=== PATIENT | female | born 1950 | race Caucasian/White ===

== ENCOUNTER 2019-04-23 15:52 | Emergency (ER) | payer OTHER ==
[~2019-04-23] VITALS: Ht 167.6 cm; Wt 103.4 kg
[2019-04-23] MEDS ORDERED: GLUCOTROL5 MG PO (16:11)
[2019-04-23] MEDS ORDERED: TRULICITY0.75 MG/0. SUBQ (16:12)
[2019-04-23] MEDS ORDERED: CALCIUM 500 +1 EAC5 PO (16:12)
[2019-04-23] MEDS ORDERED: VITAMIN D5000 UNIT PO (16:12)
[2019-04-23] MEDS ORDERED: FISH OIL 1,001000 M2 PO (16:12)
[2019-04-23] MEDS ORDERED: COZAAR 25 MG TA25 M1 PO (16:12)
[2019-04-23] MEDS ORDERED: NORCO 5-325 TA1 EAC1 PO (17:37)
[2019-04-23] MEDS ORDERED: IBUPROFEN 800800 M1 PO (17:37)
[2019-04-23 17:52] VITALS: BP 152/62
== END 2019-04-23 17:53 | disposition home or self-care (01) ==
LOC: M.ERS 15:52
DX: S92.352A Displaced fracture of fifth metatarsal bone, left foot, initial encounter for closed fracture (principal); W01.0XXA Fall on same level from slipping, tripping and stumbling without subsequent striking against object, initial encounter; Y93.89 Activity, other specified; Y92.89 Other specified places as the place of occurrence of the external cause; Y99.8 Other external cause status; E11.9 Type 2 diabetes mellitus without complications; I10 Essential (primary) hypertension; E78.00 Pure hypercholesterolemia, unspecified; Z85.118 Personal history of other malignant neoplasm of bronchus and lung; Z88.8 Allergy status to other drugs, medicaments and biological substances